=== PATIENT | female | born 1965 | race Caucasian/White ===

== ENCOUNTER → 2017-05-29 | Outpatient (CLI) | payer OTHER ==
--- NOTE | 2017-05-31 08:42 | MM ---
Reason for exam: screening (asymptomatic). Last mammogram was performed 3 years and 8 months ago. History: Patient is postmenopausal and is nulliparous. Physical Findings: A clinical breast exam by your physician is recommended on an annual basis and results should be correlated with mammographic findings. MG Screening Mammo w CAD Bilateral CC and MLO view(s) were taken. Prior study comparison: October 03, 2013, bilateral MG screening mammo w CAD. December 16, 2010, [facility] DIGITAL LEFT BREAST MAMMOGRAM w/CAD. The breast tissue is heterogeneously dense. This may lower the sensitivity of mammography. No significant changes when compared with prior studies. ASSESSMENT: Negative, BI-RAD 1 RECOMMENDATION: Routine screening mammogram of both breasts in 1 year.
== END | disposition home or self-care (01) ==
LOC: RADMAMWWP 07:55
PROVIDERS: ATTEND Family Medicine
DX: Z12.31 Encounter for screening mammogram for malignant neoplasm of breast (principal)
CPT/HCPCS: 77067

== ENCOUNTER → 2019-01-03 | Outpatient (CLI) | payer OTHER ==
--- NOTE | 2019-01-04 13:13 | MM ---
Reason for exam: screening (asymptomatic). Last mammogram was performed 1 year and 7 months ago. History: Patient is postmenopausal and is nulliparous. Physical Findings: A clinical breast exam by your physician is recommended on an annual basis and results should be correlated with mammographic findings. MG Screening Mammo w CAD Bilateral CC and MLO view(s) were taken. Prior study comparison: May 29, 2017, bilateral MG screening mammo w CAD. October 03, 2013, bilateral MG screening mammo w CAD. The breast tissue is heterogeneously dense. This may lower the sensitivity of mammography. No suspicious abnormality. No significant changes when compared with prior studies. ASSESSMENT: Negative, BI-RAD 1 RECOMMENDATION: Routine screening mammogram of both breasts in 1 year.
== END | disposition home or self-care (01) ==
LOC: RADMAMWWP 09:44
PROVIDERS: ATTEND Family Medicine
DX: Z12.31 Encounter for screening mammogram for malignant neoplasm of breast (principal)
CPT/HCPCS: 77067

== ENCOUNTER → 2020-07-09 | Outpatient (CLI) | payer BC ==
--- NOTE | 2020-07-10 11:52 | MM ---
Reason for exam: screening (asymptomatic). Last mammogram was performed 1 year and 6 months ago. History: Patient is postmenopausal and is nulliparous. Physical Findings: A clinical breast exam by your physician is recommended on an annual basis and results should be correlated with mammographic findings. MG Screening Mammo w CAD Bilateral CC and MLO view(s) were taken. Prior study comparison: January 03, 2019, bilateral MG screening mammo w CAD. May 29, 2017, bilateral MG screening mammo w CAD. The breast tissue is heterogeneously dense. This may lower the sensitivity of mammography. There is no discrete abnormality. No significant changes when compared with prior studies. ASSESSMENT: Negative, BI-RAD 1 RECOMMENDATION: Routine screening mammogram of both breasts in 1 year.
== END | disposition home or self-care (01) ==
LOC: RADMAMWWP 08:25
PROVIDERS: ATTEND Family Medicine
DX: Z12.31 Encounter for screening mammogram for malignant neoplasm of breast (principal)
CPT/HCPCS: 77067

== ENCOUNTER → 2021-05-24 | Outpatient (CLI) | payer BC ==
--- NOTE | 2021-05-24 20:54 | MR ---
EXAMINATION TYPE: MR brain and iac wo/w con DATE OF EXAM: 05/24/2021 COMPARISON: None HISTORY: Acoustic neuroma, Meniere's disease, Lt side hearing loss TECHNIQUE: Multiplanar, multisequence images of the brain and brainstem is performed with small [id number] an d high resolution images through the internal auditory canals without and with IV contrast, utilizing 6.5 mL intravenous Gadavist . FINDINGS: Diffusion weighted images demonstrate no evidence of a recent infarct or other diffusion ab normality. There is no extra-axial fluid collection or significant white matter signal abnormality. The ventricular system and cisternal spaces are normal in size and appearance. The brain volume is age appropriate. The cerebellopontine angles are unremarkable. There is no abnormal enhancement or mass within the int ernal auditory canals Midline structures demonstrate normal morphology, there is a partially empty sella. The craniocervic al junction appears within normal limits. Post contrast images demonstrate no abnormal enhancement. The dural venous sinuses appear patent. The visualized sinuses show mucosal disease within the ethmoi d air cells, and the globes are intact. IMPRESSION: No evidence for acoustic neuroma
== END | disposition home or self-care (01) ==
LOC: RADMRIMAIN 07:30
PROVIDERS: ATTEND Otolaryngology
DX: H91.92 Unspecified hearing loss, left ear (principal)
CPT/HCPCS: 70553; A9585

== ENCOUNTER → 2022-06-23 | Outpatient (CLI) | payer BC ==
--- NOTE | 2022-06-24 07:56 | MM ---
Reason for Exam: Screening (asymptomatic). Last mammogram was performed 2 year(s) and 0 month(s) ago. Patient History: Menarche at age 11. Patient has no children. Postmenopausal. Risk Values: Antoinette 5 year model risk: 1.6%. NCI Lifetime model risk: 9.5%. Prior Study Comparison: 05/29/2017 Bilateral Screening Mammogram, [facility]. 01/03/2019 Bilateral Screening Mammogram, [facility]. 07/09/2020 Bilateral Screening Mammogram, [facility]. Tissue Density: The breast tissue is heterogeneously dense. This may lower the sensitivity of mammography. Findings: Analyzed By CAD. There is no suspicious group of microcalcifications or new suspicious mass in either breast. Overall Assessment: Negative, BI-RAD 1 Management: Screening Mammogram of both breasts in 1 year. A clinical breast exam by your physician is recommended on an annual basis and results should be correlated with mammographic findings. Electronically signed and approved by: Apolinar Patel D.O.
== END | disposition home or self-care (01) ==
LOC: RADMAMWWP 07:56
PROVIDERS: ATTEND Family Medicine
DX: Z12.31 Encounter for screening mammogram for malignant neoplasm of breast (principal); Z78.0 Asymptomatic menopausal state
CPT/HCPCS: 77067

== ENCOUNTER → 2023-07-31 | Outpatient (CLI) | payer BC ==
--- NOTE | 2023-07-31 10:38 | MM ---
Reason for Exam: Screening (asymptomatic). Last mammogram was performed 1 year(s) and 1 month(s) ago. Patient History: Menarche at age 11. Patient has no children. Postmenopausal. Risk Values: Antoinette 5 year model risk: 1.6%. NCI Lifetime model risk: 9.3%. Prior Study Comparison: 01/03/2019 Bilateral Screening Mammogram, [facility]. 07/09/2020 Bilateral Screening Mammogram, [facility]. 06/23/2022 Bilateral MG screening mammo w CAD, [facility]. Tissue Density: The breasts are heterogeneously dense, which may obscure small masses. Findings: Analyzed By CAD. Right breast: There is no suspicious group of microcalcifications or new suspicious mass. Left breast: There is no suspicious group of microcalcifications or new suspicious mass. Overall Assessment: Negative, BI-RAD 1 Management: Screening Mammogram of both breasts in [address] [facility] will attempt to contact patient to return for supplemental views and ultrasound if indicated. Patient should continue monthly self-breast exams. A clinical breast exam by your physician is recommended on an annual basis. This exam should not preclude additional follow-up of suspicious palpable abnormalities. Note on Antoinette scores and lifetime risk: 1. A Antoinette score greater than 3% is considered moderate risk. If this is the case, consider specialist referral to assess eligibility for a risk reducing agent. 2. If overall lifetime risk for the development of breast cancer is 20% or higher, the patient may qualify for future screening with alternating mammogram and breast MRI. Electronically signed and approved by: Augustus Allison DO
== END | disposition home or self-care (01) ==
LOC: RADMAMWWP 08:03
PROVIDERS: ATTEND Family Medicine
DX: Z12.31 Encounter for screening mammogram for malignant neoplasm of breast (principal); Z78.0 Asymptomatic menopausal state
CPT/HCPCS: 77067

== ENCOUNTER 2024-05-03 11:23 | Day surgery (SDC) | payer BC ==
[2024-05-03] MEDS: IV FLUID CONTINUATION 1,000 ML IV ONE ×2 (11:18→11:28)
[2024-05-03 11:52] VITALS: TEMP 97.7
[2024-05-03] MEDS: LACTATED RINGERS 1,000 ML IV SCH (11:52)
[2024-05-03] MEDS ORDERED: PROPOFOL 10 MG/ML 20 ML VIAL IV ONE (12:24)
[2024-05-03] MEDS ORDERED: LIDOCAINE 1% INJ 10MG/ML (20 ML MDV) ONE (12:24)
--- NOTE | 2024-05-03 12:32 | P.PCN ---
Date of Procedure: 05/03/24 Procedure(s) Performed: BRIEF HISTORY: Patient is a 58-year-old, pleasant, white female scheduled an upper endoscopy as a part evaluation of chronic intermittent nausea, epigastric discomfort and heartburn for the last several years duration. Symptoms have been intermittent in nature and usually last for a few weeks and then resolves. Presently on Protonix 40 mg daily with some help. PROCEDURE PERFORMED: Esophagogastroduodenoscopy with biopsy. PREOPERATIVE DIAGNOSIS: Chronic intermittent nausea and and heartburn. IV sedation per anesthesia. PROCEDURE: After informed consent was obtained, the patient was brought into the endoscopy unit. IV sedation was administered by Anesthesia under continuous monitoring. Initially the Olympus GIF-140 video endoscope was inserted into the mouth. Esophagus intubated without any difficulty. It was gradually advanced into the stomach and duodenum and carefully examined. The bulb and the second part of the duodenum appeared normal. These were done from the duodenum rule out celiac disease. The scope at this time was withdrawn to the stomach, adequately insufflated with air, and upon careful examination, mucosa of the antrum, and mild gastritis and biopsies were done from this area. Mucosa of the body, cardia and the fundus appeared normal. The scope was then withdrawn into the esophagus. The GE junction was located at 39 cm from the incisors. There was a 3 mm tongue of Wilson's appearing mucosa proximal to the GE junction that was biopsied. The esophagus appeared normal. There were no erosions or ulcerations seen and the patient tolerated the procedure well. IMPRESSION: 1. Mild antral gastritis. 2. Small hiatal hernia and short segment Wilson's esophagus. RECOMMENDATIONS: The findings of this examination were discussed with the patient as well as her family. She was advised to follow-up with the biopsy results. Continue with Protonix 40 mg daily and follow antireflux measures. If the biopsy confirms the presence of Wilson's esophagus she can have repeat upper endoscopy in 3 years..
[2024-05-03 12:53] VITALS: RESP 20
[2024-05-03 13:05] VITALS: BP 137/85; PULSE 98
== END 2024-05-03 13:38 ==
LOC: ORWHC2ENDO 11:23
PROVIDERS: ATTEND Internal Medicine Gastroenterology
DX: K22.70 Barrett's esophagus without dysplasia (principal); K21.00 Gastro-esophageal reflux disease with esophagitis, without bleeding; K44.9 Diaphragmatic hernia without obstruction or gangrene; E07.9 Disorder of thyroid, unspecified; Z79.890 Hormone replacement therapy; Z79.899 Other long term (current) drug therapy; Z87.891 Personal history of nicotine dependence; K29.50 Unspecified chronic gastritis without bleeding
CPT/HCPCS: 88305; 43239; J2003; J2704

== ENCOUNTER → 2024-09-18 | Outpatient (CLI) | payer BC ==
--- NOTE | 2024-09-18 11:53 | XR ---
EXAMINATION TYPE: XR abdomen complete w decub DATE OF EXAM: 09/18/2024 11:40 AM INDICATION: Patient age:Female; 59 years old; Reason for study: K59.00 CONSTIPATION; [facility]. COMPARISON: None. TECHNIQUE: Upright supine and left lateral decubitus views of the abdomen were obtained. FINDINGS: Small bowel demonstrates no evidence for dilatation or air fluid levels. Moderate amount of stool is present throughout the colon. No convincing evidence for pneumoperitoneum. No unusual calcifications. The lung bases are clear. The osseous structures are intact. IMPRESSION: Overall nonobstructive bowel gas pattern. Moderate colonic stool burden which correlates with reporte d constipation. [facility], , 09/18/2024 11:51 AM
== END | disposition home or self-care (01) ==
LOC: RADXRMAIN 11:21
PROVIDERS: ATTEND Internal Medicine Gastroenterology
DX: K59.00 Constipation, unspecified (principal); R19.5 Other fecal abnormalities; R14.0 Abdominal distension (gaseous)
CPT/HCPCS: 74021